=== PATIENT | female | born 1975 | race Hispanic/Latino ===

== ENCOUNTER 2017-07-26 11:47 | Emergency (ER) | payer SELFPAY ==
--- NOTE | 2017-07-26 12:26 | Emergency Department Report ---
Chief Complaint: Extremity Injury, Lower Stated Complaint: GLASS IN FOOT Time Seen by Provider: 07/26/17 12:25 - HPI History of Present Illness: PT states she stepped on a broken bottle this morning. - ROS Review of Systems: + laceration + fb sensation - Exam Vital Signs: Vital Signs 07/26/17 12:21 Temperature 98.7 F Pulse Rate 82 Blood Pressure 114/65 O2 Sat by Pulse 97 Oximetry Physical Exam: dried blood noted to plantar L foot MSE screening note: Focused history and physical exam performed. Due to findings the following was ordered: xr ED Disposition for MSE Condition: Stable
[2017-07-26 12:28] VITALS: BP 114/65
--- NOTE | 2017-07-26 14:00 | XRay Report ---
Left foot 3 views: History: Stepped On broken bottle. Findings: Radiopaque foreign body is identified the plantar aspect of foot seen in lateral projection. Probably at the head of first metatarsal. No fracture. No periosteal reaction. Impression: Findings as detailed above
[2017-07-26] MEDS ORDERED: XYLOCAINE 1% 20 mL INFILTRATI ONE (14:49)
--- NOTE | 2017-07-26 14:49 | Emergency Department Report ---
ED Lower Extremity HPI - General Chief Complaint: Extremity Injury, Lower Stated Complaint: GLASS IN FOOT Time Seen by Provider: 07/26/17 12:25 Source: patient Mode of arrival: Ambulatory Limitations: No Limitations - History of Present Illness Initial Comments: This is a 42-year-old female nontoxic, well nourished in appearance, no acute signs of distress presents to the ED complaining of left foot pain status post a benign glass that has occurred this morning around 5 AM. Patient states she was walking her dog and accidentally stepped on a glass while wearing slippers. Patient denies any numbness or tingling. They stated bleeding is under control. Patient states she believes she has glass stuck in her foot. Patient denies any decreased range of motion, fever, chills, nausea, vomiting, pus, drainage, chest pain, short of breath, headache, stiff neck, or abdominal pain. Patient denies any allergies. Past medical history includes asthma. They stated she is up-to-date with tetanus and received a tetanus shot 2014. MD Complaint: foot injury -: This morning Injury: Foot: Left Type of Injury: puncture wound Place: street/outdoors Severity: mild Severity scale (0 -10): 8 Improves With: nothing Worsens With: nothing Context: walking Associated Symptoms: able to partially bear weight, ambulatory. denies: snap/ pop sensation, swelling, numbness, tingling, unable to bear weight - Related Data Previous Rx's Medication Instructions Recorded Last Taken Type Ciprofloxacin HCl [Ciprofloxacin 750 mg PO BID #14 tablet 07/26/17 Unknown Rx TAB] traMADol [Ultram] 50 mg PO Q6HR PRN #12 tablet 07/26/17 Unknown Rx Allergies Allergy/AdvReac Type Severity Reaction Status Date / Time No Known Allergies Allergy Verified 07/26/17 12:24 ED Review of Systems ROS: Stated complaint: GLASS IN FOOT Other details as noted in HPI Constitutional: denies: chills, fever Eyes: denies: eye pain, eye discharge, vision change ENT: denies: ear pain, throat pain Respiratory: denies: cough, shortness of breath, wheezing Cardiovascular: denies: chest pain, palpitations Endocrine: no symptoms reported Gastrointestinal: denies: abdominal pain, nausea, diarrhea Genitourinary: denies: urgency, dysuria, discharge Musculoskeletal: denies: back pain, joint swelling, arthralgia Skin: denies: rash, lesions Neurological: denies: headache, weakness, paresthesias Psychiatric: denies: anxiety, depression Hematological/Lymphatic: denies: easy bleeding, easy bruising ED Past Medical Hx - Past Medical History Previous Medical History?: Yes Hx Asthma: Yes - Surgical History Past Surgical History?: Yes Additional Surgical History: jaw - Social History Smoking Status: Current Every Day Smoker Substance Use Type: Alcohol - Medications Home Medications: Home Medications Medication Instructions Recorded Confirmed Last Taken Type Ciprofloxacin HCl [Ciprofloxacin 750 mg PO BID #14 tablet 07/26/17 Unknown Rx TAB] traMADol [Ultram] 50 mg PO Q6HR PRN #12 tablet 07/26/17 Unknown Rx ED Physical Exam - General Limitations: No Limitations General appearance: alert, in no apparent distress - Head Head exam: Present: atraumatic, normocephalic, normal inspection - Eye Eye exam: Present: normal appearance, PERRL, EOMI. Absent: scleral icterus, conjunctival injection, nystagmus, periorbital swelling, periorbital tenderness Pupils: Present: normal accommodation - ENT ENT exam: Present: normal exam, normal orophraynx, mucous membranes moist, TM's normal bilaterally, normal external ear exam - Neck Neck exam: Present: normal inspection, full ROM. Absent: tenderness, meningismus, lymphadenopathy, thyromegaly - Respiratory Respiratory exam: Present: normal lung sounds bilaterally. Absent: respiratory distress, wheezes, rales, rhonchi, stridor, chest wall tenderness, accessory muscle use, decreased breath sounds, prolonged expiratory - Cardiovascular Cardiovascular Exam: Present: regular rate, normal rhythm, normal heart sounds. Absent: bradycardia, tachycardia, irregular rhythm, systolic murmur, diastolic murmur, rubs, gallop - GI/Abdominal GI/Abdominal exam: Present: soft, normal bowel sounds. Absent: distended, tenderness, guarding, rebound, rigid, diminished bowel sounds - Rectal Rectal exam: Present: deferred - Extremities Exam Extremities exam: Present: normal inspection, full ROM, tenderness, normal capillary refill. Absent: pedal edema, joint swelling, calf tenderness - Expanded Lower Extremity Exam Left Hip exam: Present: normal inspection, full ROM Upper Leg exam: Present: normal inspection, full ROM Knee exam: Present: normal inspection, full ROM Lower Leg exam: Present: normal inspection, full ROM Ankle exam: Present: normal inspection, full ROM Foot/Toe exam: Present: normal inspection, full ROM, tenderness, abrasion, puncture wound. Absent: swelling, laceration, ecchymosis, deformity, crepidus, dislocation, erythema, amputation, foreign body, calcaneal tenderness, tenderness at base of 5th metatarsal, nail avulsion, subungual hematoma Neuro vascular tendon exam: Present: no vascular compromise. Absent: pulse deficit, abnormal cap refill, motor deficit, sensory deficit, tendon deficit, extremity cold to touch, pallor, abnormal 2-point discrimination, decreased fine /light touch, foot drop, peroneal nerve deficit, significant pain with passive ROM of distal joint Gait: Positive: observed and limited by pain 1 - 1 cm puncture wound with positive foreign body sensation - Back Exam Back exam: Present: normal inspection, full ROM. Absent: tenderness, CVA tenderness (R), CVA tenderness (L), muscle spasm, paraspinal tenderness, vertebral tenderness, rash noted - Neurological Exam Neurological exam: Present: alert, oriented X3, CN II-XII intact, normal gait, reflexes normal - Psychiatric Psychiatric exam: Present: normal affect, normal mood - Skin Skin exam: Present: warm, dry, intact, normal color. Absent: rash ED Course Vital Signs 07/26/17 12:21 Temperature 98.7 F Pulse Rate 82 Blood Pressure 114/65 O2 Sat by Pulse 97 Oximetry - Reevaluation(s) Reevaluation #1: 07/26/17 14:49 Patient is speaking in full sentences with no signs of distress noted. - Procedure Description Procedures done: I had patient soak her left foot with Betadine mixed with soap and water. Under sterile field, I used Betadine to clean the area. I then used 40 mL of normal saline to flush the area. I then used 0.5% lidocaine plain and injected 6 mL to the wound. I then used a curved hemostat and inserted a puncture wound and dissected out a piece of foreign body that is consistent with glass measuring about 0.5 cm. I then applied a sterile 4 x 4 with tape. Minimal bleeding noted but is under control. Patient tolerated procedure well with no signs of distress. X-ray has been repeated and pending. ED Lower Extremity MDM - Medical Decision Making This is a 42-year-old female that presents with left plantar foot puncture wound. X-ray has been obtained and x-ray indicates a foreign body. Under sterile field I successfully remove the foreign body which is consistent with a glass particle measuring about 0.5 centimeters. Bleeding is under control. Post foreign body removal x-ray has been obtained with negative findings of any foreign body. A sterile 4 x 4 dressing with tape has been applied. Patient received crutches due to pain while walking. Patient received Cipro at discharge. Patient was educated on proper wound care. Patient also received Ultram for pain. She was instructed not to operate any machinery while taking Ultram due to sedation/drowsiness. Patient stated pain is significantly decreased and improved after treatment in the ED. Patient was instructed to follow-up with a primary care doctor in 3-5 days or if symptoms worsen and continue return to emergency room as soon as possible possible. Patient is hemodynamically stable with stable vital signs. Patient states he is feeling better. At time time of discharge, the patient does not seem toxic or ill in appearance. No acute signs of distress noted. Patient agrees to discharge treatment plan of care. No further questions noted by the patient. Critical care attestation.: If time is entered above; I have spent that time in minutes in the direct care of this critically ill patient, excluding procedure time. ED Disposition Clinical Impression: Foreign body, Puncture wound Disposition: DC-01 TO HOME OR SELFCARE Is pt being admited?: No Does the pt Need Aspirin: No Condition: Stable Instructions: Soft Tissue Foreign Body (ED), Ciprofloxacin (By mouth), Tramadol (By mouth), Acute Wound Care (ED), Crutch Instructions (ED) Additional Instructions: Follow-up with a primary care doctor in 3-5 days or if symptoms worsen and continue return to emergency room as soon as possible possible. Prescriptions: Ciprofloxacin HCl [Ciprofloxacin TAB] 750 mg PO BID #14 tablet traMADol [Ultram] 50 mg PO Q6HR PRN #12 tablet PRN Reason: Pain Referrals: PRIMARY CARE, [Primary Care Provider] - 3-5 Days LELO CLARK MD [Staff Physician] - 3-5 Days [facility] [Outside] - 3-5 Days [facility] [Outside] - 3-5 Days Forms: Work/School Release Form(ED)
--- NOTE | 2017-07-26 15:12 | XRay Report ---
Left foot 3 views: History: Foreign body post removal. History: Findings: No radiopaque foreign body seen. The previous BX no soft tissue calcification Impression: No radiopaque foreign body identified.
== END 2017-07-26 16:16 | disposition home or self-care (01) ==
LOC: ED 11:47
DX: S91.332A Puncture wound without foreign body, left foot, initial encounter (principal); F17.210 Nicotine dependence, cigarettes, uncomplicated; W22.8XXA Striking against or struck by other objects, initial encounter; Y93.89 Activity, other specified; Y92.89 Other specified places as the place of occurrence of the external cause; Y99.8 Other external cause status
CPT/HCPCS: 99283

== ENCOUNTER 2020-10-06 12:03 | Emergency (ER) | payer SELFPAY ==
[2020-10-06 12:20] VITALS: BP 141/74
--- NOTE | 2020-10-06 12:53 | Emergency Department Report ---
ED ENT HPI - General Chief complaint: Earache Stated complaint: SEVERE RT EAR PAIN Time Seen by Provider: 10/06/20 12:33 Source: patient Mode of arrival: Ambulatory Limitations: No Limitations - History of Present Illness MD complaint: ear pain -: days(s) (3) Quality: aching, dull Consistency: constant Improves with: none Worsens with: position Associated Symptoms: discharge from ear (ear pain and swelling) - Related Data Previous Rx's Medication Instructions Recorded Last Taken Type Ciprofloxacin HCl [Ciprofloxacin 750 mg PO BID #14 tablet 07/26/17 Unknown Rx TAB] traMADoL [Ultram] 50 mg PO Q6HR PRN #12 tablet 07/26/17 Unknown Rx Amoxicillin/Potassium Clav 1 each PO BID #20 tablet 10/06/20 Unknown Rx [Augmentin 875-125 Tablet] Neomy/Polymyx B/Hc (Otic) Soln 4 drops OT TID #1 bottle 10/06/20 Unknown Rx [Cortisporin (Otic) Soln] Allergies Allergy/AdvReac Type Severity Reaction Status Date / Time No Known Allergies Allergy Verified 07/26/17 12:24 ED Dental HPI - General Chief complaint: Earache Stated complaint: SEVERE RT EAR PAIN Time Seen by Provider: 10/06/20 12:33 Source: patient Mode of arrival: Ambulatory Limitations: No Limitations - Related Data Previous Rx's Medication Instructions Recorded Last Taken Type Ciprofloxacin HCl [Ciprofloxacin 750 mg PO BID #14 tablet 07/26/17 Unknown Rx TAB] traMADoL [Ultram] 50 mg PO Q6HR PRN #12 tablet 07/26/17 Unknown Rx Amoxicillin/Potassium Clav 1 each PO BID #20 tablet 10/06/20 Unknown Rx [Augmentin 875-125 Tablet] Neomy/Polymyx B/Hc (Otic) Soln 4 drops OT TID #1 bottle 10/06/20 Unknown Rx [Cortisporin (Otic) Soln] Allergies Allergy/AdvReac Type Severity Reaction Status Date / Time No Known Allergies Allergy Verified 07/26/17 12:24 ED Review of Systems ROS: Stated complaint: SEVERE RT EAR PAIN Other details as noted in HPI Comment: All other systems reviewed and negative ED Past Medical Hx - Past Medical History Hx Asthma: Yes Additional medical history: HEART MURMUR AT - Surgical History Additional Surgical History: jaw - Social History Smoking Status: Current Every Day Smoker Substance Use Type: Alcohol - Medications Home Medications: Home Medications Medication Instructions Recorded Confirmed Last Taken Type Ciprofloxacin HCl [Ciprofloxacin 750 mg PO BID #14 tablet 07/26/17 Unknown Rx TAB] traMADoL [Ultram] 50 mg PO Q6HR PRN #12 tablet 07/26/17 Unknown Rx Amoxicillin/Potassium Clav 1 each PO BID #20 tablet 10/06/20 Unknown Rx [Augmentin 875-125 Tablet] Neomy/Polymyx B/Hc (Otic) Soln 4 drops OT TID #1 bottle 10/06/20 Unknown Rx [Cortisporin (Otic) Soln] ED Physical Exam - General Limitations: No Limitations General appearance: alert, in no apparent distress - Head Head exam: Present: atraumatic, normocephalic - Eye Eye exam: Present: normal appearance - ENT ENT exam: Present: mucous membranes moist - Expanded ENT Exam Expanded TM/Canal exam: Erythema: Right TM, Effusion: Right TM, Canal Discharge: Right TM, Canal Tenderness: Right TM Mouth exam: Present: normal external inspection Teeth exam: Present: normal inspection - Neck Neck exam: Present: normal inspection - Respiratory Respiratory exam: Present: normal lung sounds bilaterally. Absent: respiratory distress - Cardiovascular Cardiovascular Exam: Present: regular rate, normal rhythm. Absent: systolic murmur, diastolic murmur, rubs, gallop - GI/Abdominal GI/Abdominal exam: Present: soft, normal bowel sounds - Extremities Exam Extremities exam: Present: normal inspection - Back Exam Back exam: Present: normal inspection - Neurological Exam Neurological exam: Present: alert, oriented X3 - Psychiatric Psychiatric exam: Present: normal affect, normal mood - Skin Skin exam: Present: warm, dry, intact, normal color. Absent: rash ED Course Vital Signs 10/06/20 12:19 Temperature 98.1 F Pulse Rate 88 Respiratory 20 Rate Blood Pressure 141/74 O2 Sat by Pulse 98 Oximetry Critical care attestation.: If time is entered above; I have spent that time in minutes in the direct care of this critically ill patient, excluding procedure time. ED Disposition Clinical Impression: Otitis externa Disposition: DC-01 TO HOME OR SELFCARE Is pt being admited?: No Does the pt Need Aspirin: No Condition: Stable Instructions: Otitis Externa, [id number], Otitis Externa, Ear Drops, Adult Referrals: ALYSON HCAPMAN MD [Staff Physician] - 3-5 Days
== END 2020-10-06 13:00 | disposition home or self-care (01) ==
LOC: ED 12:03
DX: H60.91 Unspecified otitis externa, right ear (principal); J45.909 Unspecified asthma, uncomplicated; F17.200 Nicotine dependence, unspecified, uncomplicated; Z79.899 Other long term (current) drug therapy; Z98.890 Other specified postprocedural states
CPT/HCPCS: 99281